=== PATIENT | male | born 1995 | race Caucasian/White ===

== ENCOUNTER 2021-11-02 13:02 | Emergency (ER) | payer BC ==
[~2021-11-02] VITALS: Ht 185 cm; Wt 109.0 kg
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
--- NOTE | 2021-11-02 14:11 | Diagnostic Imaging Report ---
PATIENT HISTORY: Chest pain. Right rib pain. TECHNIQUE: 2 views of the chest . COMPARISON: None FINDINGS: The lung volumes are normal. No focal consolidation is seen. No large pleural effusion or pneumothorax is seen. The cardiomediastinal silhouette is normal in size and contour. No acute osseous abnormality is seen. IMPRESSION: No acute pulmonary abnormality seen. No displaced rib fractures are seen. Dictated by: Dictated on workstation # [id number]
[2021-11-02] MEDS ORDERED: DICL75TA2 PO (14:30)
[2021-11-02 15:15] VITALS: BP 133/81
== END 2021-11-02 15:15 | disposition home or self-care (01) ==
LOC: ER 13:05
DX: S29.9XXA Unspecified injury of thorax, initial encounter (principal); Z28.310 Unvaccinated for COVID-19; W03.XXXA Other fall on same level due to collision with another person, initial encounter
CPT/HCPCS: 71046; 94664

== ENCOUNTER 2022-10-08 05:42 | Outpatient (CLI) | payer BC ==
[~2022-10-08] VITALS: Ht 185.4 cm; Wt 117.5 kg
[~2022-10-08 05:42] MED LIST: DICL75TA2 PO
== END 2022-10-08 15:22 | disposition home or self-care (01) ==
LOC: PREOP 05:42
PROVIDERS: ATTEND Surgery
DX: Z01.818 Encounter for other preprocedural examination (principal)

== ENCOUNTER 2022-10-15 09:06 | Day surgery (SDC) | payer BC ==
[2022-10-15] VITALS (10 sets, daily range): BP systolic 112–129; BP diastolic 68–87
[~2022-10-15] VITALS: Ht 185.4 cm; Wt 117.5 kg
[2022-10-15] MEDS ORDERED: ceFAZolin INJECTION 2,000 MG in NS (IVPB) 50 ML IV ONE (09:15)
[2022-10-15] MEDS ORDERED: BUP/EPI 0.25% 1:200,000 (MARCAINE) 30 ML VIAL ONE (09:19)
[2022-10-15] MEDS: LACTATED RINGERS 1,000 ML IV PRN ×2 (09:24→10:59)
[2022-10-15] MEDS ORDERED: MIDAZOLAM 2 MG/2 ML (VERSED) VIAL ONE (09:59)
[2022-10-15] MEDS ORDERED: fentaNYL INJ 100 MCG/2 ML AMP ONE (09:59)
[2022-10-15] MEDS ORDERED: proPOfol 200 MG/20 ML (DIPRIVAN) VIAL IV ONE (09:59)
[2022-10-15] MEDS ORDERED: LIDOCAINE PF 2% 5 ML (XYLOCAINE) VIAL ONE (09:59)
[2022-10-15] MEDS ORDERED: ONDANSETRON 4 MG/2 ML (SDV) Z0FRAN ONE (09:59)
--- NOTE | 2022-10-15 10:25 | Progress Note-Pre Operative ---
Pre-Operative Progress Note Date of Available H&P: Oct 07, 2022 Date H&P Reviewed: Oct 15, 2022 Time H&P Reviewed: 10:22 History & Physical: H&P Reviewed, Patient Examed, No changes noted Pre-Operative Diagnosis: Anal fissure MARIYA DUENAS DO Oct 15, 2022 10:25
[2022-10-15] MEDS ORDERED: SEVOFLURANE (ULTANE) 15 ML INHAL SOLN ONE (10:47)
[2022-10-15] MEDS ORDERED: ACHD5005 PO (10:53)
--- NOTE | 2022-10-15 10:53 | Progress Note-Post Operative ---
Post-Operative Progess Note Surgeon (s)/Kerrick Kleaner Operator (s) Surgeon MARIYA DUENAS DO Kerrick Kleaner Operator: OTIS Warner Pre-Operative Diagnosis Anal fissure Post-Operative Diagnosis same Procedure & Operative Findings Date of Procedure 10/15/22 Procedure Performed/Findings Partial Lateral Internal Sphincterotomy Anesthesia Type LMA Estimated Blood Loss Estimated blood loss (mL): scant Specimens/Packing Specimens Removed none MARIYA DUENAS DO Oct 15, 2022 10:53
[2022-10-15] MEDS ORDERED: BUP/EPI 0.25% 1:200,000 (MARCAINE) 30 ML VIAL INJ ONE (10:55)
--- NOTE | 2022-10-15 10:55 | Anesthesia-General Post-Op ---
General Patient Condition Mental Status/LOC: Same as Preop Cardiovascular: Satisfactory Nausea/Vomiting: Absent Respiratory: Satisfactory Pain: Controlled Complications: Absent Post Op Complications Complications None Follow Up Care/Instructions Patient Instructions None needed. Anesthesia/Patient Condition Patient Condition Patient is doing well, no complaints, stable vital signs, no apparent adverse anesthesia problems. No complications reported per nursing. JESÚS GARCIA INVENTORY ASSOCIATE Oct 15, 2022 10:55
--- NOTE | 2022-10-15 10:56 | Discharge Inst-Surgical ---
Discharge Inst-Surgical Depart Medication/Instructions New, Converted or Re-Newed RX: Transmitted to Pharmacy Patient Instructions Follow up Appt: Make appointment for 1 week. [phone] Instructions: No lifting greater than 20 pounds. No strenuous activity. May shower in 24 hours, no tub bath or soaking. Use incentive spirometer at home as directed. No Smoking Skin/Wound Care: Incision should close in 24 hours, minimal bleeding is expected. Sitz baths and donut pillow will help. Symptoms to Report: Appetite Changes, Extremity Discoloration, Numbness/Tingling, Swelling Increased, Bleeding Excessive, Eyesight Changes, Pain Increased, Urine Color Change, Constipation(Persistent), Fever over 101 degree F, Pain/Pressure in chest, Urinating Difficulty, Cough Up/Vomit Blood, Heart Beat Irreg/Pounding, Pain/Pressure in jaw, Cramps in feet or legs, Lightheadedness, Pain/Pressure in shoulder, Diarrhea(Persistent), Memory Changes Suddenly, Questions/Concerns, Weight gain consecutive days, Dizziness/Fainting, Nausea/Vomiting, Shortness of Breath, Weight gain over 2 pounds If questions or concerns contact your physician Or seek help at emergency department. Activity Activity as Tolerated: Yes Activity Instructions: Avoid Stress to Incision Driving Instructions: No Driving/Refer to Dr. Mi Discharge Diet: No Restrictions (increase fluids, take stool softener) Diet After 24 Hours: Clear Liquid if Nauseous If Any Problems/Questions/Issu: Contact Your Physician, Go to Emergency Room Skin/Wound Care Infection Signs and Symptoms: Increased Redness, Foul Odor of Wound, Increased Drainage, Skin Itchy or Has a Rash, Increased Swelling, Temperature Above 101 F Bathing Instructions: MARIYA Crabtree DO Oct 15, 2022 10:56
[2022-10-15] MEDS ORDERED: morphine INJ 10 MG/ML 1ML (SYR OR VIAL) IVP ONE (11:00)
[2022-10-15] MEDS ORDERED: ONDANSETRON 4 MG/2 ML (SDV) Z0FRAN IVP PRN (11:00)
[2022-10-15] MEDS ORDERED: fentaNYL INJ 100 MCG/2 ML AMP IVP ONE (11:00)
[2022-10-15] MEDS ORDERED: HYDROcodone/APAP 5 MG/325 MG (LORTAB) TAB ONE (12:32)
[2022-10-15] MEDS ORDERED: HYDROcodone/APAP 5 MG/325 MG (LORTAB) TAB PO ONE (12:45)
--- NOTE | 2022-10-15 17:42 | OPERATIVE REPORT ---
DATE OF SERVICE: 10/15/2022 PREOPERATIVE DIAGNOSIS: Anal fissure. POSTOPERATIVE DIAGNOSIS: Anal fissure. PROCEDURE: Partial lateral internal sphincterotomy. SURGEON: Shayan Zuniga DO PHOTOGRAPHY EDITOR: Juan F Lujan MS4. ANESTHESIA: LMA. SPECIMENS: None. ESTIMATED BLOOD LOSS: Scant. FLUIDS: Per anesthesia. POSTOPERATIVE CONDITION: Stable. INDICATIONS FOR PROCEDURE: The patient is a 27-year-old male who has a fissure causing pain and bleeding, wanted to get this fixed. FINDINGS: The patient had an anal fissure at the 6 o'clock. He also has a tight anal sphincter as evidenced by when I just went to look and gently spread the anus apart. He actually ripped at about the 12 o'clock position. DESCRIPTION OF PROCEDURE: After informed consent was obtained, the patient was brought to the operating room. He was placed on table in lithotomy position. He was sterilely prepped and draped in normal fashion. 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 I then infiltrated right around the 5 o'clock position with local lidocaine. Made a small incision with #15 blade, then able to get hemostat up under the [ ] anal sphincter. I then cut half of the muscle with Bovie electrocautery. I then dropped this back in. This was then irrigated. I palpated, did a digital rectal exam, he had no masses in the prostate. He had maybe some small internal hemorrhoids. At this point, the area was then cleaned and dried. A dressing was placed. The patient was then transferred to recovery room in stable condition. Sponge, instrument and needle count correct at the end. Job ID: [id number] DocumentID: [id number] Dictated Date: 10/15/2022 11:00:27 Flight Mechanic Date: 10/15/2022 17:40:00 Dictated By: SHAYAN ZUNIGA DO
== END 2022-10-15 12:50 | disposition home or self-care (01) ==
LOC: SDC 09:06
PROVIDERS: ATTEND Surgery
DX: K60.1 Chronic anal fissure (principal); E66.9 Obesity, unspecified; Z68.34 Body mass index [BMI] 34.0-34.9, adult; Z28.310 Unvaccinated for COVID-19
CPT/HCPCS: 87081